=== PATIENT | male | born 1955 | race Caucasian/White ===

== ENCOUNTER → 2016-06-23 | Outpatient (CLI) | payer MEDICAID ==
--- NOTE | 2016-06-23 17:47 | CT ---
CT Chest Without Contrast Indication: Suspected right upper lobe pulmonary nodule on chest radiograph from April 2015. Negat balbina follow up chest CT. Technique: Standard CT of the chest utilizing 5 mm collimated slices through the thorax. Dose reducti on techniques were utilized. Comparison: The lungs are well aerated and clear. No pulmonary nodule or mass. Specifically, no right upper lobe pulmonary nodule or bone island within the ribs. The density on the 2015 chest radiograph may represent superimposed medial body of the scapula and rib posteriorly. The airway has diffuse mild peribronchial thickening. No bronchiectasis, mucous plugging or endobronc hial lesion. The heart size is normal. Calcified plaque is present along the left anterior descending and right co ronary artery. The thoracic aorta is normal in caliber. No enlarged lymph node or mass has developed within the axilla, mediastinum, pulmonary oliverio, or imaged portion at the upper abdomen. Mild multilev el degenerative disk disease is unchanged. Impression: 1. No right upper lobe pulmonary nodule or lesions suspicious for malignancy. The finding on the 2015 chest radiograph is likely superimposed chest wall structures. 2. Calcified coronary plaque. 3. Chronic bronchitis unchanged. No mucous plugging or bronchiectasis.
== END ==
LOC: FIMAGING 09:35
PROVIDERS: ATTEND Nurse Practitioner
DX: I25.83 Coronary atherosclerosis due to lipid rich plaque (principal); J42 Unspecified chronic bronchitis

== ENCOUNTER → 2017-07-27 | Outpatient (CLI) | payer MEDICAID | LOC: FIMAGING 10:06 | PROVIDERS: ATTEND Nurse Practitioner | DX: R91.1 Solitary pulmonary nodule (principal); J21.9 Acute bronchiolitis, unspecified; B20 Human immunodeficiency virus [HIV] disease; I25.10 Atherosclerotic heart disease of native coronary artery without angina pectoris; Z72.0 Tobacco use ==